=== PATIENT | male | born 1980 | race Caucasian/White ===

== ENCOUNTER 2025-07-26 08:32 | Outpatient (CLI) | payer OTHER, SELFPAY ==
--- OUTSIDE RECORDS SUMMARY | 2006-03-06 06:30 | XMS_ITS | Continuity of Care Document ---
Author Organization [facility] Address [address] [place] [address] Phone Care Team Providers Care Polish Compounder Name Role Phone Jolly OD, Jimmy Unavailable Unavailable Advance Directives Directive Yes / No Effective Date File Name No Information Encounters Encounter Description Practice Location Reason(s) For Visit Diagnoses Date Provider Providers Copied on Encounter [facility], [address], [place], [place], [id number], [place] tel:[phone] [facility] No Information Apr-2 8-200 6 Jolly OD Jimmy. [address] , [address], [place], [address], [place]. tel:[phone] Family History Family Member Type Diagnosis Age At Onset No Information Payers Payer name Insurance type Covered green party ID Authoriza tion(s) No Information Social History Type Description Quantity Date Captured Comments Sex Male Smoking Status No Information Chief Complaint And Reason For Visit No Information Reason For Referral Reason For Referral No Information History Of Present Illness Encounter Date Complaint History Of Prese nt Illness No Information Functional Status Date Functional Assessmen t No Information Instructions Date Instruction Additional Infor mation No Information Assessments Type Assessment Date No Information Patient Care Teams Name Effective Dates (start - stop) Status Members No Information
--- OUTSIDE RECORDS SUMMARY | 2025-07-26 09:08 | XMS_ITS | Clinical Summary ---
Author Organization [facility] Address [address] [place] [address] Care Team Providers Care Oracle Erp Developer Name Role Phone Silvia De León Primary Care Provider + Allergies Active Allergy Reactions Criticality Noted Date Comments Clindamycin Unknown 05/27/2018 Medications artificial tears (ISOPTO TEARS) 0.5 % ophthalmic solution Administer 2 drops into both eyes every 3 (three) hours as needed (dry eye) 15 mL 1 03/16/20 24 Active cetirizine (ZyrTEC) 10 mg tablet Take 1 tablet (10 mg total) by mouth daily as needed for allergies 90 tablet 3 02/17/20 25 026 Active telmisartan (MICARDIS) 20 mg tablet Take 1 tablet (20 mg total) by mouth daily 30 tablet 11 04/27/20 25 026 Active sotagliflozin (Inpefa) 200 mg tablet Take 200 mg by mouth daily 90 tablet 3 04/27/20 25 Active furosemide (LASIX) 40 mg tablet Take 1 tablet (40 mg total) by mouth 2 (two) times a day 180 tablet 3 04/27/20 25 026 Active azelastine (ASTELIN) 137 mcg (0.1 %) nasal spray SPRAY 2 SPRAYS INTO EACH NOSTRIL ONCE A DAY 05/02/20 25 Active fluticasone propionate (FLONASE) 50 mcg/actuation nasal spray SPRAY 2 SPRAYS INTO EACH NOSTRIL ONCE A DAY 05/30/20 25 Active phentermine (ADIPEX-P) 37.5 mg tabletIndicatio ns:Weight Loss Management for Obese Patient (BMI >= 30) Take 1 tablet (37.5 mg total) by mouth daily before breakfast 90 tablet 06/21/20 25 025 Active topiramate (TOPAMAX) 50 mg tabletIndicatio ns:Class 3 severe obesity due to excess calories with serious comorbidity and body mass index (BMI) of 40.0 to 44.9 in adult Take 1 tablet (50 mg total) by mouth 2 (two) times a day 60 tablet 2 06/21/20 25 025 Active busPIRone (BUSPAR) 7.5 mg tabletIndicatio ns:Generalized Anxiety Disorder Take 1 tablet (7.5 mg total) by mouth 2 (two) times a day 60 tablet 07/18/20 25 Active busPIRone (BUSPAR) 5 mg tabletIndicatio ns:Generalized Anxiety Disorder Take 1 tablet (5 mg total) by mouth 2 (two) times a day 60 tablet 1 06/26/20 25 025 Discontinued Active Problems Problem Noted Date Diagnosed Date Mixed hyperlipidemia 06/26/2025 Assessment & Plan (06/26/2025 1:18 PM CDT): Chronic, stable Limit red meats, fried and processed foods, and maintain regular exercise Orders: Lipid panel; Future Chronic diastolic heart failure 12/13/2024 Assessment & Plan (06/26/2025 1:18 PM CDT): Chronic, stable Diastolic heart failure with no current symptoms. Continue furosemide and sotagliflozin per Dr. Mclaughlin Monitoring salt intake and reduced smoking recommended F/U w/ Dr. Mclaughlin as advised Assessment & Plan (02/16/2025 1:27 PM CDT): Chronic, stable Has follow up with Cardiology in a couple of weeks Continue medications as prescribed Orders: pneumococcal 20-valent (Prevnar 20, PF,) 0.5 mL vaccine; Inject 0.5 mL into the muscle as instructed once for 1 dose Tdap (Adacel,Tdap Adolesn/Adult,,PF,) 2 Lf-(2.5-5-3-5 mcg)-5Lf/0.5 mL vaccine; Inject 0.5 mL into the muscle as instructed once for 1 dose Assessment & Plan (12/13/2024 9:46 PM PREVENTATIVE MAINTENANCE TECHNICIAN): Chronic, stable condition. Continue current medication regimen: Lasix, Inpefa - per cardiology Prediabetes 12/13/2024 Assessment & Plan (06/26/2025 1:18 PM CDT): Chronic, stable - Recheck A1c to establish baseline before starting new medication. Orders: Hemoglobin A1c; Future Assessment & Plan (02/16/2025 1:27 PM CDT): Chronic, stable Periodically monitoring labs Continue working on weight loss Assessment & Plan (12/13/2024 9:46 PM PREVENTATIVE MAINTENANCE TECHNICIAN): Start semaglutide given his obesity, prediabetes and heart failure No contraindications to use No personal/family h/o thyroid cancers, pancreatitis, retinopathy Recommend eye exam GILLES on CPAP 12/13/2024 Assessment & Plan (06/26/2025 1:18 PM CDT): Chronic, uncontrolled Obstructive sleep apnea managed with CPAP. Difficulty meeting insurance requirements for usage hours but finds CPAP beneficial. Weight loss may improve condition. Assessment & Plan (12/13/2024 9:48 PM PREVENTATIVE MAINTENANCE TECHNICIAN): Seeing ENT/[facility] Had home sleep study, started on CPAP Seeing improvement in symptoms Sleeping well Other skin changes 12/13/2024 Assessment & Plan (12/13/2024 9:50 PM PREVENTATIVE MAINTENANCE TECHNICIAN): Lower abdomen - some thickened/hardened skin/subcutaneous tissue. No rash or erythema. Monitor for skin changes. Possible scar tissue or due to edema. Pt will schedule with gen surg for hernia Chest pain 09/13/2024 Hypertension, essential 08/11/2024 Assessment & Plan (06/26/2025 1:18 PM CDT): Chronic, stable Continue telmisartan Reviewed heart healthy diet Exercise recommended at least 5 times per week for a 1/2 hour Low-sodium diet recommended-2000 mg or less per day Monitor blood pressure regularly notify if less than 100/60 or greater than 130s over 80s Notify if pulse is less than 60 or greater than 100 Assessment & Plan (02/16/2025 1:27 PM CDT): Chronic, stable Well-controlled Continue Metoprolol 25 mg daily Has follow up with Cardiology scheduled later this month Orders: pneumococcal 20-valent (Prevnar 20, PF,) 0.5 mL vaccine; Inject 0.5 mL into the muscle as instructed once for 1 dose Tdap (Adacel,Tdap Adolesn/Adult,,PF,) 2 Lf-(2.5-5-3-5 mcg)-5Lf/0.5 mL vaccine; Inject 0.5 mL into the muscle as instructed once for 1 dose Assessment & Plan (08/11/2024 9:58 AM CDT): Longstanding uncontrolled and untreated high blood pressure. Likely secondary to untreated sleep apnea. Discussed with patient medication at this time, he is open to trying something. He does have some minimal peripheral edema, we will start hydrochlorothiazide 12.5 mg daily. Labs ordered Abnormal echocardiogram 08/11/2024 Assessment & Plan (08/11/2024 10:24 AM CDT): Previous echo from hospitalization in March showing possible PFO Refer to cardiology Class 3 severe obesity due t o excess calories with serious comorbidity and body mass index (BMI) of 40.0 to 44.9 in adult 08/10/2024 Assessment & Plan (06/26/2025 1:18 PM CDT): Chronic, uncontrolled Goal of 180-200lb GLP-1 agonists considered safer than phentermine due to heart condition but face insurance coverage issues. - Contact credit manager for GLP-1 agonist prior authorization status - Consider [facility] mail-in program or compound pharmacy for GLP-1 agonist if insurance does not cover. - Plan to stop phentermine and topiramate if GLP-1 agonist is started. - Follow up in one month if GLP-1 agonist is started. -The patient denies a personal and family history of medullary thyroid cancer and aware some evidence has been found in rodents to have increased risk of thyroid tumors with GLP1 medication. Action and side effects of medication were discussed including GI upset, nausea, vomiting, constipation and the possibility of gastroparesis or pancreatitis. If the patient develops abdominal pain associated with vomiting then they should discontinue medication and inform me. Strength training encouraged to reduce risk of muscle loss. Assessment & Plan (06/21/2025 8:20 AM CDT): Chronic. Uncontrolled. Goal: 180lb Recommend Nutritional every other Thursday Seminar. Recommended Medication : Cont. Phenermine. Cont. Topiramate 25mg BID. Assessment & Plan (03/22/2025 8:33 AM CDT): Chronic. Uncontrolled. Goal: 180lb Recommend Nutritional every other Thursday Seminar. Recommended Medication : Start Topiramate 25mg BID. Assessment & Plan (12/13/2024 9:46 PM PREVENTATIVE MAINTENANCE TECHNICIAN): BMI Follow-up includes: nutrition counseling and exercise counseling. Start semaglutide given his obesity, prediabetes and heart failure No contraindications to use No personal/family h/o thyroid cancers, pancreatitis, retinopathy Recommend eye exam Assessment & Plan (08/11/2024 9:55 AM CDT): Chronic, we will monitor over time BMI Follow-up includes: education provided. History of cocaine use 08/10/2024 Assessment & Plan (08/11/2024 9:56 AM CDT): Sober since 04/05/2024. Went through rehab Cigarette nicotine dependence without complicati on 08/10/2024 Assessment & Plan (06/26/2025 1:18 PM CDT): Chronic, uncontrolled Smoking cessation advised - Discuss smoking cessation options, including Wellbutrin, if decides to quit. Assessment & Plan (08/11/2024 9:56 AM CDT): Encouraged cessation Erectile dysfunction 08/10/2024 Assessment & Plan (08/11/2024 9:56 AM CDT): Patient was previously on Cialis, requesting refill of this today. Discussed with him concerns of his untreated sleep apnea and high blood pressure. Would like to get this under control 1st. He is interested in evaluation for vasectomy. We will refer to Urology, they could potentially do ED medication for him as needed. Chronic anxiety 04/28/2024 Assessment & Plan (06/26/2025 1:18 PM CDT): Chronic, uncontrolled - Start buspirone 5 mg twice a day. - Follow up in one month to assess anxiety management. Chronic pain of right ankle 04/28/2024 Assessment & Plan (06/26/2025 1:18 PM CDT): Chronic, uncontrolled Management of weight loss discussed to help get approved for treatment recommended by ortho Will work on getting GLP for patient Assessment & Plan (12/13/2024 9:45 PM PREVENTATIVE MAINTENANCE TECHNICIAN): H/o fracture In the lower ankle/leg Xray ordered Assessment & Plan (08/11/2024 9:57 AM CDT): Previous injury that was never evaluated due to lack of insurance. X-ray ordered. Hernia of abdominal wall 04/28/2024 Assessment & Plan (06/26/2025 1:18 PM CDT): Chronic, unstable Ventral hernia causing significant pain and functional limitations. Plans for surgical repair after weight loss. Assessment & Plan (12/13/2024 9:45 PM PREVENTATIVE MAINTENANCE TECHNICIAN): Pt was referred to general surgery, needs to schedule Contact info given Assessment & Plan (08/11/2024 9:55 AM CDT): Referral to General surgery Resolved Problems Problem Noted Date Diagnosed Date Resolved Date History of cocaine abuse 02/16/202508/2025 Apnea 04/28/2024 12/13/2024 Assessment & Plan (08/11/2024 9:55 AM CDT): Patient has witnessed apneas, snoring, history of sleep apnea? Has appointment with ENT/sleep medicine next week. He is eager to get on a prescribed CPAP. Morbid obesity with BMI of 45.0-49.9, adult 04/28/2024 06/26/2025 Assessment & Plan (02/16/2025 1:27 PM CDT): BMI Follow-up includes: nutrition counseling and exercise counseling. - Insurance did not cover semaglutide - Patient was referred to weight loss specialist - He continues with diet and exercise and has successfully lost almost 30 lb on his home scale - Continue diet and exercise efforts Acute respiratory failure with hypercapnia 03/18/2024 08/10/2024 Assessment & Plan (03/18/2024 5:41 PM CDT): - pH 7.25/78 in the ED. Improved to 7.34/63 today. - Pt was placed on Bipap in ED. Subsequently, he was admitted to the ICU. He was transitioned off the bipap and transferred to the floor today. - Likely chronic hypercarbia secondary to undiagnosed GILLES and obesity hypoventilation. HF component is possible given cocaine use and elevated BNP. S/p CTX/AZM in ED - TTE: pending - Pt received 40mg IV lasix for the past 2 days. Transitioned to PO lasix 80mg daily today. - Will need outpt sleep study AMS (altered mental status) 03/18/2024 08/10/2024 Assessment & Plan (03/18/2024 5:41 PM CDT): - Altered mentation likely 2/2 hypercarbic respiratory failure - Resolved Allergic conjunctivitis and rhinitis, bilateral 03/17/2024 08/10/2024 Assessment & Plan (03/18/2024 2:25 PM CDT): - Evaluated in ED, per Ophthalmology likely allergic conjunctivitis, stating most likely given exposure to known trigger, bilateral involvement, fast resolution of chemosis, known hx allergies with evidence of periorbital hyperpigmentation. - Ophthalmology was following and recommended --PFAT 6-8x daily + PRN --Trial Pataday daily OU --Cool compresses PRN --Wash clothes and bedding that may have been exposed to known triggers (i.e. grass/pollen) --Continue home zyrtec Snoring 05/27/2018 12/13/2024 Assessment & Plan (08/11/2024 9:55 AM CDT): Patient will see sleep medicine next week as scheduled. Encounters Date Type Department Care Team Description 06/26/2025 9:30 AM CDT Office Visit [facility] [address] [phone] Caroline Blank NP Annual physical exam (Primary Dx); Prediabetes; GILLES on CPAP; Chronic anxiety; Chronic pain of right ankle; Hernia of abdominal wall; Class 3 severe obesity due to excess calories with serious comorbidity and body mass index (BMI) of 40.0 to 44.9 in adult; Cigarette nicotine dependence without complication; Hypertension, essential; Chronic diastolic heart failure (HCC); Mixed hyperlipidemia; Colon cancer screening 06/21/2025 8:00 AM CDT Office Visit [facility] at [address] [place] [phone] Tha Rand MD Class 3 severe obesity due to excess calories with serious comorbidity and body mass index (BMI) of 40.0 to 44.9 in adult (Primary Dx) 06/12/2025 Results Follow-Up [facility] [address] [phone] Silvia De León PA XR Ankle Right 3 or More Views 06/05/2025 8:53 AM CDT - 06/05/2025 11:59 PM CDT Hospital Encounter [facility] [address] [place] [id number] Chronic pain of right ankle Discharge Disposition: Discharge to home or self care 06/05/2025 8:45 AM CDT Office Visit [facility] [address] [facility] [address] [place] [phone] Regan Cobb DO Chronic pain of right ankle (Primary Dx) 05/02/2025 Telephone [facility] [address] [place] [address] [place] [phone] Melony Mclaughlin MD Med Refill 04/28/2025 Telephone [facility] [address] [place] [address] [place] [phone] Melony Mclaughlin MD 04/27/2025 1:15 PM CDT Office Visit [facility] [address] [place] [address] [place] [phone] Melony Mclaughlin MD GILLES on CPAP (Primary Dx); Chronic diastolic heart failure (HCC); Hypertension, essential; Morbid obesity with BMI of 45.0-49.9, adult (HCC) 04/26/2025 11:[address] [facility] [place] Lab [address] [place] [address] 04/26/2025 Results Follow-Up [facility] [address] [place] [phone] Melony Mclaughlin MD Comprehensive metabolic panel, Thyroid Function [place], eGFR from Last 3 Months Immunizations Immunization Administration Dates Next Due Influenza, Unspecified 07/10/2025(Deferr ed: Patient Refused),07/10/2024(Deferred: Patient decision),08/26/2023(Deferred: Patient decision),08/26/2022(Deferred: Patient decision) Tdap 03/11/2025 Surgical History Surgery Date Site/Laterality Comments ANTERIOR CRUCIATE LIGAMENT REPAIR Left knee Medical History Medical History Date Comments Sleep apnea Acute respiratory failure with hypercapnia (HCC) 03/18/2024 AMS (altered mental status) 03/18/2024 Pneumonia Cocaine abuse Morbid obesity with BMI of 45.0-49.9, adult (HCC ) 04/28/2024 Family History Medical History Relation Name Comments Diabetes Brother Fibromyalgia Father Sleep apnea Father No Known Problems Mother Relation Name Status Comments Brother Alive Father Alive Maternal Grandfather Maternal Grandmother Mother Alive Paternal Grandfather Paternal Grandmother Social History Tobacco Use Types Packs/Day Years Used Date Smoking Tobacco: Every Day Cigarettes 1 21.4 Started: 03/18/2004 Smokeless Tobacco: Never Tobacco Cessation:Ready to Q uit: Yes Alcohol Use Standard Drinks/Week Comments Never 0 (1 standard drink = 0.6 oz pur e alcohol) PHQ-2 Answer Date Recorded PHQ-2 Total Score (If total score is 3 or more points, staff should administer the PHQ-9) 0 06/26/2025 PHQ-9 Answer Date Recorded PHQ-9 Total Score 9 08/10/2024 AUDIT-C Answer Date Recorded Q1: How often do you have a drink containing alcohol? Never 06/26/2025 Q2: How many drinks containi ng alcohol do you have on a typical day when you are drinking? Patient does not drink Q3: How often do you have si x or more drinks on one occasion? Never 06/26/2025 Personal Safety Answer Date Recorded Have you ever been in or are you currently in a harmful physical or emotional relationship or is someone making you feel afraid or unsafe? 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 Not on file Not on file Obstetrics History Last Filed Vital Signs Vital Sign Reading Time Taken Comments Blood Pressure 136/70 06/26/2025 9:30 AM CDT Pulse 86 06/26/2025 9:30 AM CDT Temperature 36.7 C (98 F) 06/26/2025 9:30 AM CDT Respiratory Rate 16 06/26/2025 9:30 AM CDT Oxygen Saturation 97% 06/26/2025 9:30 AM CDT Inhaled Oxygen Concentration - - Weight 140.1 kg (308 lb 12.8 oz) 06/26/2025 9:30 AM CDT Height 180.3 cm (5' 11) 06/26/2025 9:30 AM CDT Body Mass Index 43.07 06/26/2025 9:30 AM CDT Plan of Treatment Health Maintenance Due Date Last Done Comments Colon Cancer Screening-Colonoscopy 1980 Hepatitis C Screening 1980 Hepatitis B Screening 1998 Pneumococcal vaccine <65 (1 of 2 - PCV) 1999 HPV Vaccines (1 - 3-dose SCD M series) 2007 Influenza Vaccine (#1) 2025 Depression Screening 06/26/2026 06/26/2025, 02/16/2025, 12/13/2024, Additional history exists Regular Well Visit/Exam 18-64 06/26/2026 06/26/2025, 06/26/2025 DTaP/Tdap/Td Vaccine (2 - Td or Tdap) 03/11/2035 03/11/2025 Varicella Vaccines Discontinued Procedures Procedure Name Priority Date/Time Associated Diagnosis Comments XR ANKLE RIGHT 3 OR MORE VIEWS Schedule Routine, Read Routine (OP Routine) 06/05/2025 9:00 AM CDT Chronic pain of right ankle EGFR Routine 04/26/2025 11:34 AM CDT THYROID FUNCTION CASCADE Routine 04/26/2025 11:34 AM CDT COMPREHENSIVE METABOLIC PANEL Routine 04/26/2025 11:34 AM CDT from Last 3 Months Results * XR Ankle Right 3 or More Views (06/05/2025 9:00 AM CDT) Anatomical Region Laterality Modality Lower Extremities, Ankle Right Compute d Radiography 06/10/2025 6:09 AM CDT Narrative 06/10/2025 6:11 AM CDT EXAM DESCRIPTION: 1. XR ANKLE RIGHT 3 OR MORE VIEWS REASON FOR STUDY: pain FX x2 yrs, F/U 3 months, possible pre-op FINDINGS: Three views submitted with comparison 12/22/2024. No acute fracture. Old healed right ankle fracture with syndesmotic injury noted. Severe right ankle osteoarthritis with lateral talar subluxation. Large ankle effusion with loose bodies noted. Old deltoid ligament sprain is present. Qdgm-[id number] soft tissue swelling about the ankle. Left ankle osteoarthritis noted. IMPRESSION: 1. Old healed trimalleolar right ankle fracture with syndesmotic injury. 2. Severe right ankle osteoarthritis with lateral talar subluxation, large effusion and loose bodies. THIS IS AN ELECTRONICALLY VERIFIED FINAL REPORT 06/10/2025 6:11 AM - Electronically signed by Vinicio Singh M.D. T: Report ID: [id number] Reading Location: [place] [address] Procedure Note Vinicio Singh MD - 06/10/2025 EXAM DESCRIPTION: 1. XR ANKLE RIGHT 3 OR MORE VIEWS REASON FOR STUDY: pain FX x2 yrs, F/U 3 months, possible pre-op FINDINGS: Three views submitted with comparison 12/22/2024. No acute fracture. Old healed right ankle fracture with syndesmoticinjury noted. Severe right ankle osteoarthritis with lateral talar subluxation. Large ankle effusion with loose bodies noted. Old deltoid ligament sprainis present. Rmwm-mq-vkssstrd soft tissue swelling about the ankle. Leftankle osteoarthritis noted. IMPRESSION: 1. Old healed trimalleolar right ankle fracture with syndesmoticinjury. 2. Severe right ankle osteoarthritis with lateral talar subluxation,large effusion and loose bodies. THIS IS AN ELECTRONICALLY VERIFIED FINAL REPORT 06/10/2025 6:11 AM - Electronically signed by Vinicio Singh M.D. T: Report ID: [id number] Reading Location: [place] [address] us Regan Cobb DO IMG XR PROCEDURES Final Result * eGFR (04/26/2025 11:34 AM CDT) eGFR >90 >=60 mL/min/1. 73 m2 Comment: Interpretive Data Reference Interval Normal >/= 90 mL/min/1.73m2 Mildly decreased* 60 - 89 mL/min/1.73m2 Mildly to moderately decreased 45 - 59 mL/min/1.73m2 Moderately to severely decreased 30 - 44 mL/min/1.73m2 Severely decreased 15 - 29 mL/min/1.73m2 Kidney Failure < 15 mL/min/1.73m2 *Relative to young adult level Estimated glomerular filtration rate is determined by the 2020 CKD-EPI equation recommended by the National Kidney Foundation (A Unifying Approach to GFR Estimation: Recommendations of the NKF-ASK Task Force on Reassessing the Inclusion of Race in Diagnosing Kidney Disease, JASN 2020). The CKD-EPI equation should not be used for patients with unstable renal function and has not been validated in children and those over 70. Current interpretive data was last reviewed 2021. Testing performed by: [address] [address] Blood 04/26/2025 11:3 4 AM CDT 04/26/2025 11:43 AM CDT Melony Mclaughlin MD LAB BLOOD ORDERABL ES Final Result Performing Organization Address [facility] Co de Phone Number [address] [place] [address] * Thyroid Function [place] (04/26/2025 11:34 AM CDT) TSH 1.23 0.30 - 4.20 mcIUnit/mL Comment:Testing performed by : [address] [address] Blood 04/26/2025 11:3 4 AM CDT 04/26/2025 11:43 AM CDT Melony Mclaughlin MD LAB BLOOD ORDERABL ES Final Result Performing Organization Address [place]/[facility] Co de Phone Number [address] [place] [address] * Comprehensive metabolic panel (04/26/2025 11:34 AM CDT) Sodium 140 135 - 145 mmol/L Comment:Testing performed by : [address] [address] Potassium, pl 4.0 3.3 - 4.9 mmol/L JOEL Comment: Hemolyzed; Potassium value may be falsely elevated by as much as 1.0 mmol/L. Suggest redraw and reanalysis. Testing performed by: [address], [place]., [address] Chloride 103 97 - 110 mmol/L JOEL Comment:Testing performed by : [address], [place]., [address] CO2 27 22 - 32 mmol/L JOEL Comment:Testing performed by : [address], [place]., [address] Anion gap 10 2 - 15 mmol/L JOEL Comment:Testing performed by : [address], [place]., [address] BUN 17 6 - 25 mg/dL [facility] Comment:Testing performed by : [address], [place]., [address] Creatinine 0.90 0.80 - 1.30 mg/dL [facility] Comment:Testing performed by : [address], [place]., [address] Glucose 149 70 - 199 mg/dL [facility] Comment: Interpretive Data Fasting glucose >/= 126 mg/dl is diagnostic for diabetes. Fasting is defined as no caloric intake for at least 8 hours. Fasting glucose between 100 mg/dl to 125 mg/dl is diagnostic of prediabetes. In a patient with classic symptoms of hyperglycemia or hyperglycemic crisis, a random glucose >/= 200 mg/dl is diagnostic for diabetes. In the absence of unequivocal hyperglycemia, results should be confirmed by repeat testing. The classification and Diagnosis of Diabetes Diabetes Care 2021; 46: S19-S40. Current interpretive data was last revised 2022. Testing performed by: [address] [address] Calcium 9.1 8.5 - 10.3 mg/dL JOEL Comment:Testing performed by : [address], [place]., [address] Bilirubin, total 0.4 0.1 - 1.2 mg/dL JOEL Comment:Testing performed by : [facility], [address] [place] [address]., [address] Protein, pl 6.9 6.5 - 8.5 g/dL JOEL GALLEGOS Comment:Testing performed by : [address] [address] Albumin 4.2 3.5 - 5.0 g/dL JOEL Comment:Testing performed by : [address] [address] Alk phos 85 40 - 130 Units/L JOEL Comment:Testing performed by : [address] [address] ALT 17 7 - 55 Units/L JOEL Comment:Testing performed by : [address] [address] AST 19 10 - 50 Units/L JOEL Comment:Testing performed by : [address] [address] Blood 04/26/2025 11:3 4 AM CDT 04/26/2025 11:43 AM CDT us Melony Mclaughlin MD LAB BLOOD ORDERABL ES Final Result JOEL [address] [facility] Department [place] [address] from Last 3 [place] [address] [facility] [place] [phone] [facility] Advance Directives For more information, please contact: [phone] * Full Code (Latest Code Status on File) Date Activated Date Inactivated Comments 03/17/2024 4:26 AM 03/19/2024 3:11 AM Care Teams Oracle Erp Developer Relationship Specialty Start Date End Date Silvia De León PA [address] [place] [address] PCP - General Family Medicine 08/10/24
--- OUTSIDE RECORDS SUMMARY | 2025-07-26 09:08 | XMS_ITS | Clinical Summary ---
Author Organization [facility] Address [address] [place] [address] Care Team Providers Care Cash Grain Farmer Name Role Phone Unavailable Primary Care Provider Unavailabl e Source Comments [facility],non-owned Affiliates and Associated Physician Practices is amultiple site organization consisting of ambulatory clinics and hospital sitesin [place], [place], [place] and [place]. This disclosure is being madepursuant to the Care Everywhere program and may not contain all information available regarding this patient. Last updated 18.[facility] [employer] Allergies No known active allergies Medications * Be aware that medications may not be up to date on this document. Alwaysverify current medications with the patient. ciprofloxacin 0.3% (CILOXAN) 0.3 % ophthalmic solutionIndication s:Mucopurulent conjunctivitis of both eyes Instill 1 Drop into both eyes every 2 hours while awake x2 days, then q4 hours while awake x5 days 5 mL 03/11/20 17 Active lidocaine (LIDODERM) 5 % patch Apply 1 (one) patch to skin once daily 14 patch 03/20/20 22 Active acetaminophen (TYLENOL) 500 MG tablet Take 1 (one) tablet by mouth every 4 hours as needed for Fever or Pain Maximum allowable Acetaminophen amount = 4 Grams (4000 mg) / 24 hours. 30 tablet 03/20/20 Active ibuprofen (MOTRIN) 600 MG tablet Take 1 (one) tablet by mouth every 6 hours as needed for Pain 30 tablet 03/20/20 22 Active Family History Medical History Relation Name Comments Negative Family History Father Negative Family History Mother Relation Name Status Comments Father Mother Social History Tobacco Use Types Packs/Day Years Used Date Smoking Tobacco: Every Day Cigarettes 1 16 Smokeless Tobacco: Never Tobacco Cessation:Ready to Q uit: No; Counseling Given: No Alcohol Use Standard Drinks/Week Comments Yes 0 (1 standard drink = 0.6 oz pur e alcohol) Sex and Gender Information Value Date Recorded Sex Assigned at Not on file Legal Sex Male 8:16 AM CDT Gender Identity Not on file Sexual Orientation Not on file Last Filed Vital Signs Vital Sign Reading Time Taken Comments Blood Pressure 123/78 03/20/2022 2:53 PM CDT Pulse 80 03/20/2022 2:53 PM CDT Temperature 36.2 C (97.2 F) 03/20/2022 2:53 PM CDT Respiratory Rate 16 03/20/2022 2:53 PM CDT Oxygen Saturation 93% 03/20/2022 2:53 PM CDT Inhaled Oxygen Concentration - - Weight 149.7 kg (330 lb) 03/20/2022 11:17 AM CDT Height 180.3 cm (5' 11) 03/20/2022 11:17 AM CDT Body Mass Index 46.03 03/20/2022 11:17 AM CDT Plan of Treatment Health Maintenance Due Date Last Done Comments COLOGUARD (AGES 45-75) - COL ON CA SCREENING 1980 COLON MONITORING 1980 COLONOSCOPY - COLON CA SCREENING 1980 CT COLONOGRAPHY - COLON CA SCREENING 1980 Colorectal Cancer Screening 1980 FIT - COLON CA SCREENING 1980 FLEX SIG - COLON CA SCREENING 1980 LIPID TESTING 1980 HIV SCREENING 1995 HEPATITIS C SCREENING 04/11/1998 DTAP/TDAP/TD VACCINES (1 - Tdap) 1999 HEPATITIS B VACCINE (1 of 3 - 19+ 3-dose series) 1999 HPV VACCINE (1 - 3-dose SCDM series) 2007 DEPRESSION SCREENING 11/09/2024 COVID-19 VACCINE (2023-2 5 season) 2025 INFLUENZA VACCINE (#1) 2025 ZOSTER VACCINE (1 of 2) 2030 HIB VACCINE Aged Out No longer eligi ble based on patient's age to complete this topic MENINGOCOCCAL (Group B) VACC INE SHARED DECISION-MAKING Aged Out No longer eligibl e based on patient's age to complete this topic MENINGOCOCCAL GROUPS A/C/Y/W VACCINE Aged Out No longer eligible b ased on patient's age to complete this topic PNEUMOCOCCAL VACCINE Aged Out No long er eligible based on patient's age to complete this topic Insurance [facility] [employer] Liability [facility]
--- OUTSIDE RECORDS SUMMARY | 2025-07-26 09:08 | XMS_ITS | Encounter Summary ---
Author Organization [facility] Healthcare Address [address] [place] [address] Care Team Providers Care Wellness Instructor Name Role Phone Silvia De León Primary Care Provider + Encounter Details Date Type Department Care Team (Late st Contact Info) Description 06/12/2025 Results Follow-Up [facility] Family Medicine [address] [id number] Silvia De León PA [address] [place] [address] XR Ankle Right 3 or More Views Social History Tobacco Use Types Packs/Day Years Used Date Smoking Tobacco: Every Day Cigarettes 1 21.4 Started: 03/18/2004 Smokeless Tobacco: Never AUDIT-C Answer Date Recorded Q1: How often do you have a drink containing alcohol? Never 03/22/2025 Q2: How many drinks containi ng alcohol do you have on a typical day when you are drinking? Patient does not drink Q3: How often do you have si x or more drinks on one occasion? Never 03/22/2025 PHQ-2 Answer Date Recorded PHQ-2 Total Score (If total score is 3 or more points, staff should administer the PHQ-9) 0 02/16/2025 PHQ-9 Answer Date Recorded PHQ-9 Total Score 9 08/10/2024 Personal Safety Answer Date Recorded Have you [...] file Not on file Not on file documented as of this encounter Plan of Treatment Not on file documented as of this encounter Visit Diagnoses Not on filedocumented in this encounter Care Teams Wellness Instructor Relationship Specialty Start Date End Date Silvia De León PA [address] [facility] [address] [place] [address] PCP - General Family Medicine 08/10/24 documented as of this encounter
--- NOTE | 2025-08-18 07:29 | P.SLEEP_ITS ---
Sleep Study Date of Study: 07/26/25 Ordering Provider: Elio Bhandari, PLATING AND POINT ASSEMBLY SUPERVISOR Interpreting Physician: Tamiko Neri MD Sleep Study Type: CPAP Titration Height: 1.83 m Weight: 126.099 kg Body Mass Index: 37.7 Neck Circumference (inches): 20 Jefferson: 24 Reason for Sleep Study Obstructive sleep apnea, presents for re-titration. Compliance report from his current CPAP shows he has been using APAP 5 cm to 20 cm with 3 EPR, residual AHI 13.2; median pressure 14.2 cm, 95th percentile pressure 18.2 cm, max pressure 18.6 cm. Avg usage was 3 h 4 min, and he used it 93% of the day between 06/04/25 and 07/03/25, 30% of the days > 4 hours. Sleep History Pradip Jordan is a 45-year-old man with GILLES, has used CPAP for years. Since October, he has been in a weight loss program, had lost 75 lb. He constantly awakens from sleep feeling short of breath. He constantly wakes at night with heartburn, belching or coughing.??He constantly snores, and always snores loudly enough that others complain. He constantly has trouble sleeping when he has a cold. He constantly wakes up gasping for breath during the night. He constantly has breathing problems at night witnessed by others. He constantly sweats excessively at night and notices his heart pounding or beating irregularly during the night. He always falls asleep during the day. He constantly falls asleep involuntarily, even while driving. He never experiences loss of muscle tone with strong emotion. He constantly has daytime difficulty at work due to excessive sleepiness. He constantly feels paralyzed on waking or falling aslee p. He constantly experiences vivid dreams upon waking or falling asleep. He o ccasionally feels afraid of going to sleep. He constantly has nightmares. He constantly recalls his dreams. He always has thoughts racing through his mind. He occasionally feels sad or depressed. He constantly feels anxiety. He consta ntly notices parts of his body jerk. He constantly kicks during the night. He constantly feels crawling or aching feelings in his legs. He constantly feels leg pain at night. He constantly has morning jaw pain, always grinds his teeth at night. He constantly feels bothered by pain during the day, constantly is awakened by pain during the night. He constantly wakes up feeling stiff in the morning, wakes feeling sore or achy. He constantly awakens with pain in his neck, spine, or joints. Normal bedtime is 10:30 pm, falling asleep within 30-45 minutes, waking between 4 and 6 times during the night with tossing, turning, kicking, and going to the bathroom. Wake time is 7:30 am. He typically gets between 3-6 interrupted hours of sleep per night. He generally does not take naps in the day, however a short 10-15 minute nap may be refreshing. He is drowsy for 3 + hours after waking. 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 [facility] Past Medical History Medical History (Updated 08/18/25 @ 07:42 by Tamiko Neri MD) Generalized headaches Hypertension Rhinitis Obstructive sleep apnea Surgical History Surgical History (Updated 08/18/25 @ 07:42 by Tamiko Neri MD) History of repair of ACL Left Family History Family History (Updated 08/18/25 @ 07:45 by Tamiko Neri MD) Mother Obstructive sleep apnea Other Heart disease Social History Social History (Updated 08/18/25 @ 07:43 by Tamiko Neri MD) Smoking packs per day: 1 Smoking cigarettes per day: 20.0 Smoking status: Current every day smoker Alcohol intake: never Substance use: former Medications Medications: Metoprolol succinate 25 mg Q day Furosemide 40 mg Q day Inpefa / sotagliflozin 200 mg daily, SGLT1/SGLT2 inhibitor used for CHF, diabetes, or CKD Fluticasone 50 mcg 2 nasal sprays daily Azelsatine 137 mcg 2 nasal sprays daily Sleep Procedure A full CPAP polysomnogram using the [employer] multi-channel system recorded the standard physiologic parameters including EEG, EOG, submentalis EMG, anterior tibialis EMG, EKG, body position, nasal and oral airflow using nasal pressure sensor and thermistor. Respiratory parameters of chest and abdominal movements were recorded with Respiratory Inductance Plethysmography belts. Oxygen saturation was recorded by pulse oximetry. Video monitoring was also performed. Sleep stages, periodic limb movements, and EEG arousals were scored in 30 second epochs according to the criteria of the AASM Scoring Manual. The Apnea-Hypopnea Index was calculated using CMS guidelines for definition of hypopnea while scoring respiratory events. He did not take a sleep aid at the start of the study. The patient was started on CPAP using a small wide Resmed Airtouch N30 i nasal mask, initial pressure was 5 cm titrated to CPAP 11 cm. At CPAP 11 cm, he spent 228 minutes in bed, 46.5 minutes awake, 151 minutes in nonREM, and 28.5 minutes in REM with a sleep efficiency of 79.4%, residual AHI was 0.3, and the lowest saturation was 93%. He had REM in the left lateral position. This is the optimal pressure. Sleep Architecture The total recording time was 439.1 minutes. The total sleep time was 368.5 minutes. Sleep latency was 6.1 minutes. REM latency was 114.5 minutes. Sleep efficiency was 83.9%. The patient had 17 awakenings for an awakening index of 2.8. Wake after Sleep Onset time was 64.5 minutes. The patient spent 17.0 minutes, 4.6% of total sleep time in Stage N1. The patient spent 302.5 minutes, 82.1% in Stage N2. The patient spent 3.5 minutes, 0.9% in Stage N3. The patient spent 45.5 minutes, 12.3% in Stage REM. Respiratory Analysis The patient had 7 hypopneas, 4 obstructive apneas, 3 mixed apneas, and 2 central apneas for an overall Apnea Hypopnea Index of 2.6 events per hour. The REM Apnea Hypopnea Index was 13.2. The NREM Apnea Hypopnea Index was 1.1. The patient had a Central Apnea Hypopnea Index of 0.3. There were no Respiratory Effort Related Arousals. The Respiratory Disturbance Index is 5.4 events per hour. There was no evidence of Vamshi-Henderson Respirations. The supine AHI is 4.8, nonsupine AHI was 0. His supine REM AHI is significantly higher, 35.3. Arousals There were 73 total arousals for an arousal index of 11.9. There were 22 spontaneous arousals for an index of 3.6. There were 5 arousals due to respiratory events for an index of 0.8. There were 9 arousals due to periodic limb movements for an index of 1.5. There were 48 arousals due to isolated limb movements for an index of 7.8. Periodic Limb Movements The patient had 114 isolated limb movements with an index of 18.6. The patient had 16 periodic limb movements with index of 2.6. Patient had a total of 130 limb movements with a total limb movement index of 21.2. Oximetry Data The patient had an average oxygen saturation of 95.7% in sleep with a minimum oxygen saturation of 91% and a maximum oxygen saturation of 99%. The patient had 10 oxygen desaturations that were 4% or greater resulting in an Oxygen Desaturation Index of 1.6. The patient spent no sleep time with an oxygen saturation below 88%. Snoring Profile During titration, snoring was moderate, resolved at CPAP 11 cm. Cardiac Profile The EKG showed normal sinus rhythm. The patient had an average pulse rate of 56.6 bpm with a minimum pulse rate of 48 bpm and a maximum pulse rate of 76 bpm. No arrhythmias noted. EEG Profile Unremarkable, no evidence of seizures. Assessment and Plan Assessment and Plan (1) Obstructive sleep apnea: Code(s): G47.33 - Obstructive sleep apnea (adult) (pediatric) Status: Acute Assessment and Plan: This full night CPAP titration on Jul 26, 2025 shows an optimal pressure of CPAP 11 cm using a small wide Resmed Airtouch N30 i nasal mask with and heated humidity. At CPAP 11 cm, he spent 228 minutes in bed, 46.5 minutes awake, 151 minutes in nonREM, and 28.5 minutes in REM with a sleep efficiecny of 79.4%, residual AHI was 0.3, and the lowest saturation was 93%. He had REM in the left lateral position. The patient should be prescribed this ResMed equipment as well as tubing, filters and reservoir. This should be used with all episodes of sleep. Compliance should be reviewed within 31-90 days of starting therapy for usage greater than 4 hours per night greater than 70% of the nights. The patient should be asked about symptoms such as excessive daytime sleepiness, quality of sleep, decreased nocturia, increased mental functioning such as memory, mood, and concentration. His supine REM AHI was significantly elevated. He would benefit from trying to sleep on his side. He did not have supine REM at CPAP 11 cm. He will need a higher pressure than CPAP 11 to maintain airway patency on his back in REM. He was using APAP 5 cm to 20 cm prior to this titration. It may be that even CPAP 20 cm does not keep his airway open based on his compliance data with an AHI of 13.4 on APAP and a maximum pressure of 18 cm. BMI is 37. He is actively losing weight, and this will continue to reduce the severity of his sleep apnea. He should be closely followed for response to CPAP. His Jefferson was 24, higher than expected for treated obstructive sleep apnea. If he remain sleepy on treatment, I recommend a polysomnogram on CPAP and a multiple sleep latency test to follow. He may have a secondary sleep disorder in addition to GILLES. He has feature to suggest narcolepsy, however uncontrolled sleep apnea can cause these symptoms, but not constantly as he indicates in his sleep questionnaire. Data The data obtained during this sleep study is adequate for interpretation. Certification This sleep study has been reviewed by a board certified sleep medicine physician.
[2025-08-18 08:07] VITALS: BMI 37.7
== END 2025-07-27 06:34 | disposition home or self-care (01) ==
LOC: ANHCSM 08:33
PROVIDERS: Visit Provider Nurse Practitioner Family
DX: G47.33 Obstructive sleep apnea (adult) (pediatric) (principal)
CPT/HCPCS: 95811